=== PATIENT | male | born 1965 | race Caucasian/White ===

== ENCOUNTER 2018-06-28 18:15 | Emergency (ER) | payer SELFPAY ==
[2018-06-28] MEDS ORDERED: NACL 0.9% 500 ML 500 ML ONE (18:23)
[2018-06-28] MEDS ORDERED: ANCEF ONE (18:24)
[2018-06-28] MEDS ORDERED: NACL 0.9% 100 ML ONE (18:24)
[2018-06-28 18:39] VITALS: BP 126/83
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
== END 2018-06-28 20:16 | disposition short-term general hospital (02) ==
LOC: EDBD 18:15 → ED 18:15
DX: S22.42XA Multiple fractures of ribs, left side, initial encounter for closed fracture (principal); V03.99XA Pedestrian with other conveyance injured in collision with car, pick-up truck or van, unspecified whether traffic or nontraffic accident, initial encounter; Y93.89 Activity, other specified; Y92.410 Unspecified street and highway as the place of occurrence of the external cause; Y99.8 Other external cause status
CPT/HCPCS: 71045; 72170; 99291; J0690; J7040; 94002